=== PATIENT | male | born 1935 | race Two or more races ===

== ENCOUNTER 2018-07-16 22:40 | Emergency (ER) | payer OTHER ==
[~2018-07-16] VITALS: Ht 177.8 cm; Wt 82.6 kg
[2018-07-16] MEDS ORDERED: FORTAMET500 MG (23:06)
== END 2018-07-17 00:36 | disposition home or self-care (01) ==
LOC: ER 22:40
DX: S60.222A Contusion of left hand, initial encounter (principal); W23.0XXA Caught, crushed, jammed, or pinched between moving objects, initial encounter; Y93.89 Activity, other specified; Y92.89 Other specified places as the place of occurrence of the external cause; Y99.8 Other external cause status

== ENCOUNTER 2018-07-21 10:28 | Emergency (ER) | payer OTHER ==
[~2018-07-21] VITALS: Ht 177.8 cm; Wt 86.2 kg
[~2018-07-21 10:28] MED LIST: FORTAMET500 MG
[2018-07-21] MEDS ORDERED: OMEPRAZOLE20 M2 (10:46)
[2018-07-21] MEDS ORDERED: PENTOXIFYLLINE (10:46)
[2018-07-21] MEDS ORDERED: ATORVASTATIN CA20 MG (10:47)
== END 2018-07-21 15:47 | disposition home or self-care (01) ==
LOC: ER 10:28
DX: S33.5XXA Sprain of ligaments of lumbar spine, initial encounter (principal); M54.5 Low back pain; X50.3XXA Overexertion from repetitive movements, initial encounter; Y93.89 Activity, other specified; Y92.89 Other specified places as the place of occurrence of the external cause; Y99.8 Other external cause status